=== PATIENT | female | born 1990 | race African-American/Black ===

== ENCOUNTER 2022-06-26 17:46 | Emergency (ER) | payer MEDICAID ==
[~2022-06-26] VITALS: Ht 167.6 cm; Wt 59.0 kg
[2022-06-26] MEDS: EPINEPHRINE (1:1000) MDV 30 MG/30ML VIAL SUBCUT ONE (18:00)
[2022-06-26] MEDS: FAMOTIDINE/PF INJ 40 MG in IV D5W 250 ML IV ONE (18:00)
[2022-06-26] MEDS: methylPREDNISolone SOD SUCC 125 MG/2ML VIAL IV ONE (18:00)
[2022-06-26] MEDS: ONDANSETRON HCL/PF 4 MG/2 ML VIAL IVP ONE (18:00)
[2022-06-26] MEDS: IV NS 0.9% 1,000 ML BAG IV ONE (18:00)
--- NOTE | 2022-06-26 18:45 | NUR ---
rn notes patient broth via ambulance allergic reaction. patient refused at this time medication because does not have insurance, and wanted to speak addmitting. md aware of, and notified admitting.
--- NOTE | 2022-06-26 19:00 | NUR ---
rn notes seen patient via ER MD, inserted iv access on LAC area intact, due medication administered. bp 105/61, p-61. Infusin NS 1000 bolus. friend bedside. will follow up.
[2022-06-26] MEDS ORDERED: EPINEPHRINE (1:1000) 1 MG/ML AMPUL ONE (19:11)
[2022-06-26] MEDS ORDERED: ONDANSETRON HCL/PF 4 MG/2 ML VIAL ONE (19:12)
[2022-06-26] MEDS ORDERED: methylPREDNISolone SOD SUCC 125 MG/2ML VIAL ONE (19:12)
[2022-06-26] MEDS ORDERED: FAMOTIDINE/PF INJ 20 MG/2 ML VIAL IV ONE (19:12)
[2022-06-26 20:21] LABS: ALBUMIN 3.6 g/dL (3.4-5.0); BILIRUBIN,DIRECT 0.1 mg/dL (0.0-0.2); BILIRUBIN,TOTAL 0.3 mg/dL (0.2-1.0); CALCIUM, SERUM 8.5 mg/dL (8.5-10.1); CREATININE 1.4 mg/dL (0.6-1.3); POTASSIUM 3.1 mmol/L (3.5-5.1); TOTAL PROTEIN, SERUM 7.1 g/dL (6.4-8.2)
--- NOTE | 2022-06-26 20:43 | NUR ---
PATIENT CANNOT PROVIDE URINE SAMPLE STILL. MADE AWARE.
[2022-06-26 20:58] LABS: BASOPHILS # (AUTO) 0.2 K/uL (0.0-0.2); BASOPHILS % (AUTO) 1.6 % (0.0-2.0); EOSINOPHILS % (AUTO) 0.9 % (0.0-6.0); HEMATOCRIT 41 % (33-45); HEMOGLOBIN 13.3 g/dL (11.5-14.8); LYMPHOCYTES # (AUTO) 2.7 K/uL (0.8-4.8); LYMPHOCYTES % (AUTO) 26.5 % (20.0-44.0); MEAN CORPUSCULAR HGB CONC 33 g/dl (31.0-36.0); MEAN CORPUSCULAR VOLUME 88 fL (82-100); MONOCYTES # (AUTO) 0.7 K/uL (0.1-1.30); MONOCYTES % (AUTO) 7.2 % (2.0-12.0); NEUTROPHILS # (AUTO) 6.5 K/uL (1.8-8.9); NEUTROPHILS % (AUTO) 63.8 % (43.0-81.0); PLATELET COUNT (AUTO) 338 K/uL (150-450); WHITE BLOOD COUNT (AUTO) 10.1 K/uL (4.3-11.0)
[2022-06-26] MEDS ORDERED: EPIN0.3P3 IM (21:31)
[2022-06-26] MEDS ORDERED: DIPH25CA83 PO (21:31)
[2022-06-26] MEDS ORDERED: FAMO-131 PO (21:31)
[2022-06-26] MEDS ORDERED: PRED20TA PO (21:31)
[2022-06-26] MEDS ORDERED: ONDA4TAB5 PO (21:31)
--- NOTE | 2022-06-26 21:48 | NUR ---
IV CANNULA REMOVED
[2022-06-26 22:00] VITALS: BP 105/57
--- NOTE | 2022-06-26 22:00 | NUR ---
Patient discharged to home in stable condition. Written and verbal after care instructions given. Patient verbalizes understanding of instruction.
--- NOTE | 2022-07-01 12:17 | NUR ---
LATE RN NOTES ADMINISTERED PEPCID 20 MG/ML IV PUSH X1 PER MD ORDER.
== END 2022-06-26 22:01 | disposition home or self-care (01) ==
LOC: ER 17:52
DX: T78.1XXA Other adverse food reactions, not elsewhere classified, initial encounter (principal); R11.2 Nausea with vomiting, unspecified; R10.9 Unspecified abdominal pain; Z91.018 Allergy to other foods; X58.XXXA Exposure to other specified factors, initial encounter
CPT/HCPCS: 99284; 96374; 96375; 96361; 85025; 80048; 83690; 80076; 36415; 96372; J0171 ×2; J3490; J2930; J2405; J7030